=== PATIENT | male | born 1975 | race Caucasian/White ===

== ENCOUNTER 2024-08-15 19:46 | Emergency (ER) | payer OTHER ==
[~2024-08-15] VITALS: Ht 180.3 cm; Wt 76.7 kg
[~2024-08-15 19:46] MED LIST: BUPRENORPHINE HC8 MG SL; SUBOXONE 8 MG-1 EAC1 SL
[2024-08-15 22:11] LABS: BASOPHILS 0.5 % (0-2); EOSINOPHILS 1.5 % (0-6); HEMATOCRIT 42.1 % (35.0-50.0); HEMOGLOBIN 14.1 g/dL (12.0-18.0); LYMPHOCYTES 22.7 % (24-44); MCH 26.7 (27-36); MCHC 33.5 g/dl (30-36); MCV 79.8 fl (81-99); MONOCYTES 6.7 % (0-12); NEUTROPHILS 68.6 % (39-80); PLATELET COUNT 305 K/uL (140-440); RBC 5.28 M/ul (4.3-5.7); RDW 16.1 (10.5-15.0)
[2024-08-15 22:25] LABS: ALBUMIN/GLOBULIN RATIO 1.03 (1.1-2.4); ANION GAP 13.1 (7-21); BILIRUBIN, TOTAL 0.2 ng/dL (0.2-1.0); BUN/CREATININE RATIO 27.77 (6.0-28.6); CALCIUM 9.2 mg/dL (8.5-10.1); CREATININE, SERUM 1.08 mg/dL (0.70-1.30); POTASSIUM 4.1 mmol/L (3.5-5.1); PROTEIN, TOTAL 7.9 g/dL (6.4-8.2)
[2024-08-15 22:30] LABS: PARTIAL THROMBOPLASTIN TIME 23.5 Sec (22.9-41.3)
[2024-08-15 22:34] LABS: INR 0.95 (0.80-1.30); PROTIME 12.5 Sec (11.2-14.2)
[2024-08-15] MEDS ORDERED: NICOTINE POLACRILEX 4 MG LOZENGE BUCCAL ONE (23:15)
[2024-08-15] MEDS ORDERED: VARENICLINE1 EACH PO (23:40)
[2024-08-15] MEDS ORDERED: VARENICLINE TART1 MG PO (23:40)
[2024-08-15 23:50] VITALS: BP 145/88
== END 2024-08-15 23:51 | disposition home or self-care (01) ==
LOC: ED 19:46
PROVIDERS: Internal Medicine
DX: R04.2 Hemoptysis (principal); R91.8 Other nonspecific abnormal finding of lung field; F17.290 Nicotine dependence, other tobacco product, uncomplicated; Z79.899 Other long term (current) drug therapy
CPT/HCPCS: 36415; 71045; 71260; 80053; 85025; 85379; 85610; 85730; 99285-25; Q9967